=== PATIENT | female | born 1955 | race Caucasian/White ===

== ENCOUNTER → 2020-01-25 | Outpatient (CLI) | payer OTHER ==
--- NOTE | 2020-02-01 08:09 | PF ---
[address] [id number] PULMONARY FUNCTION REPORT Name: GEMA JEAN BAPTISTE Room: [facility]#: [id number] Admission: 01/25/20 Attend Phys: Carl Gil MD Discharge: Date of : 51 Report #: [id number] THIS REPORT FOR: //name// CC: Carl OLIVARES ROJO Physician staff DATE OF SERVICE: 01/25/2020 The FEV1/FVC ratio is normal at 72% with a forced vital capacity decreased to 74% and FEV1 decreased to 69%. The IMR68-29 is also decreased to 42%. After the administration of a bronchodilator, there is a 59% increase in the forced vital capacity. There is no significant change in any of the other values in the spirometry after the administration of a bronchodilator. The patient's forced bronchodilator FEV1 is noted to be 2.06 liters. Lung volumes and DLCO were not performed. IMPRESSION Restrictive pattern is noted on Spirometry. Increase in FEF 25-75 with albuterol suggests underlying obstruction. Poor effort and true restriction are other possible etiologies, clinical corelation is advised. <ELECTRONICALLY SIGNED> By: Rad Torres MD 02/01/2009 1855 1919Aradha Torres MD /nt
== END ==
LOC: M.PUL 10:29
PROVIDERS: ATTEND Orthopaedic Surgery
DX: J84.10 Pulmonary fibrosis, unspecified (principal)